=== PATIENT | male | born 1970 | race Caucasian/White ===

== ENCOUNTER → 2021-12-20 16:41 | Outpatient (ROUT) | payer OTHER, SELFPAY ==
[2021-12-20 11:22] LABS: COVID-19 CEPHEID PCR (VTM/NP) Negative (Negative)
== END ==
PROVIDERS: Psychiatry & Neurology Psychiatry; Visit Provider Family Medicine
DX: Z20.822 Contact with and (suspected) exposure to COVID-19 (principal)
CPT/HCPCS: U0003; U0005

== ENCOUNTER → 2025-06-27 15:02 | Outpatient (CLI) | payer BC, SELFPAY ==
--- NOTE | 2025-06-27 15:10 | DI.RAD.S_ITS ---
PROCEDURE: XR FOOT 2V WB RIGHT INDICATIONS: RIGHT FOOT AND ANKLE PAIN TECHNIQUE: 2 weight-bearing views acquired of the foot. COMPARISON: None. FINDINGS: Bones: Minimally displaced fracture of uncertain chronicity of the lateral base of the 1st distal phalanx. No other fractures are identified. The visualized joint spaces are well preserved. No suspicious bony lesions. Plantar and retrocalcaneal enthesopathy. Soft tissues: No tibiotalar joint effusion. No suspicious soft tissue calcifications. Impression: Minimally displaced age indeterminate fracture of the lateral 1st distal phalangeal base. Dictated by: Lazarus Mccallum M.D. on 06/30/2025 at 6:28 Approved by: Lazarus Mccallum M.D. on 06/30/2025 at 6:32
--- NOTE | 2025-06-27 15:11 | DI.RAD.S_ITS ---
PROCEDURE: XR ANKLE RT MIN 3V INDICATIONS: RIGHT FOOT AND ANKLE PAIN TECHNIQUE: 3 views of the ankle were acquired. COMPARISON: None. FINDINGS: Bones: No fractures or dislocations. Ankle mortise is normally aligned. No suspicious bony lesions. Plantar calcaneal enthesopathy. Soft tissues: No tibiotalar joint effusion. Achilles tendon appears normal. IMPRESSION: No acute bony abnormality or significant effusion. Dictated by: Lazarus Mccallum M.D. on 06/30/2025 at 6:32 Approved by: Lazarus Mccallum M.D. on 06/30/2025 at 6:33
== END ==
PROVIDERS: PCP Family Medicine; Referring Provider Family Medicine; Visit Provider Family Medicine
DX: S92.424A Nondisplaced fracture of distal phalanx of right great toe, initial encounter for closed fracture (principal); M25.571 Pain in right ankle and joints of right foot; M79.671 Pain in right foot
CPT/HCPCS: 73610; 73620

== ENCOUNTER → 2025-07-16 16:15 | Outpatient (CLI) | payer BC, SELFPAY ==
--- NOTE | 2025-07-16 16:17 | DI.RAD.S_ITS ---
PROCEDURE: XR LUMBAR SPINE MIN 4V INDICATIONS: LOW BACK PAIN TECHNIQUE: 5 views of the lumbar spine were acquired, including bilateral oblique views. COMPARISON: None. FINDINGS: Lumbar spine curvature and alignment: Normal. Bones: There are no osseous abnormalities. Disc spaces: Mild degenerative disc disease T12-L1 through L2-3. Mild L4-5 and moderate L5-S1 degenerative facet disease . Soft tissues: No soft tissue swelling, calcification or mass. IMPRESSION: Degeneration Dictated by: Denilson Caballero M.D. on 07/17/2025 at 13:49 Approved by: Denilson Caballero M.D. on 07/17/2025 at 13:50
== END ==
PROVIDERS: PCP Family Medicine; Referring Provider Family Medicine; Visit Provider Family Medicine
DX: M51.35 Other intervertebral disc degeneration, thoracolumbar region (principal); M51.360 Other intervertebral disc degeneration, lumbar region with discogenic back pain only; M47.816 Spondylosis without myelopathy or radiculopathy, lumbar region; M47.817 Spondylosis without myelopathy or radiculopathy, lumbosacral region
CPT/HCPCS: 72110